=== PATIENT | male | born 1985 | race Asian ===

== ENCOUNTER → 2020-07-08 | Outpatient (REF) ==
[2020-07-08 11:52] LABS: RSV AMPLIFICATION NEGATIVE (NEGATIVE)
== END ==
LOC: M EMP 10:59
PROVIDERS: ATTEND Family Medicine
DX: Z20.828 Contact with and (suspected) exposure to other viral communicable diseases (principal)

== ENCOUNTER 2020-11-26 09:38 | Emergency (ER) | payer BC ==
[~2020-11-26] VITALS: Ht 177.8 cm; Wt 82.0 kg
[2020-11-26] MEDS ORDERED: NS 1,000 ML IV SCH (09:55)
[2020-11-26] MEDS ORDERED: FLAG500T PO (09:57)
[2020-11-26] MEDS ORDERED: CIPR-249 PO (09:57)
[2020-11-26] MEDS ORDERED: DICY20TA11 PO (09:57)
[2020-11-26] MEDS ORDERED: MULT1TAB7 PO (09:57)
[2020-11-26] MEDS ORDERED: KETOROLAC 30 MG/ML 1ML VIAL IV ONE (10:15)
[2020-11-26 10:25] LABS: BASO # 0.1 10^3/uL (0.0-0.2); BASO % 0.6 % (0.0-1.0); EOS # 0.3 10^3/uL (0.0-0.5); HEMATOCRIT 48.3 % (42.0-52.0); HEMOGLOBIN 16.5 g/dl (13.5-17.5); LYMPH # 2.1 10^3/uL (1.5-5.0); LYMPH % 26.3 % (24.0-44.0); MEAN CORPUSCULAR HEMOGLOBIN 28.8 pg (27.0-33.0); MEAN CORPUSCULAR HGB CONC 34.2 g/dl (32.0-36.5); MEAN CORPUSCULAR VOLUME 84.3 fl (80.0-96.0); MONO # 0.7 10^3/uL (0.0-0.8); MONO % 8.1 % (2.0-8.0); NEUTROPHILS # 4.9 10^3/uL (1.5-8.5); NEUTROPHILS % 60.8 % (36.0-66.0); PLATELET COUNT, AUTOMATED 288 10^3/uL (150-450); RED BLOOD COUNT 5.73 10^6/uL (4.30-6.10); WHITE BLOOD COUNT 8.1 10^3/uL (4.0-10.0)
[2020-11-26 10:49] LABS: ALBUMIN 4.2 GM/DL (3.2-5.2); BILIRUBIN,DIRECT 0.2 MG/DL (0.0-0.2); BILIRUBIN,TOTAL 0.5 MG/DL (0.2-1.0); TOTAL PROTEIN 7.9 GM/DL (6.4-8.2)
[2020-11-26] MEDS: GASTROGRAFIN SOLUTION 30ML PO SCH ×2 (11:08→11:39)
[2020-11-26] MEDS ORDERED: ISOVUE-370 76% 100ML VIAL As Ordered ONE (12:26)
--- NOTE | 2020-11-26 13:25 | REP ---
INDICATION: LLQ pain. COMPARISON: None TECHNIQUE: Standard helical technique after the intravenous administration of 100 cc Isovue 370 and oral bowel preparatory contrast administration. FINDINGS: Subsegmental atelectatic changes are seen in the lung muhammad. They are otherwise clear. The liver, gallbladder, spleen, pancreas, adrenal glands, and right kidney are within normal limits. There is minimal left-sided hydronephrosis and hydroureter with slight periureteral edema. In the distal left ureter there is a 5 mm sized ureterolith. There are no urinary bladder calcifications. There is no free fluid or free air. Bowel loops and the mesenteries are within normal limits. There is no evidence of a mass or adenopathy. The abdominal aorta is within normal limits. There are a few borderline left para-aortic lymph nodes. Bone window technique throughout the examination shows the osseous structures to be within normal limits. IMPRESSION: 1. Distal left ureterolith lith with resultant findings as described above. 2. Borderline left para-aortic lymph nodes. Follow-up is recommended. <Electronically signed by David Workman > 11/26/20 [id number]
[2020-11-26] MEDS ORDERED: TAMSULOSIN 0.4 MG CAP PO ONE (13:55)
[2020-11-26] MEDS ORDERED: FLOM0.4C39 PO (14:02)
[2020-11-26] MEDS ORDERED: HYDR-3713 PO (14:02)
[2020-11-26] MEDS ORDERED: ONDA4TAB6 PO (14:02)
[2020-11-26 14:15] VITALS: BP 131/71
== END 2020-11-26 14:25 | disposition home or self-care (01) ==
LOC: M ED 09:38
DX: N20.1 Calculus of ureter (principal); H91.22 Sudden idiopathic hearing loss, left ear; Z79.2 Long term (current) use of antibiotics; Z79.899 Other long term (current) drug therapy; Z80.0 Family history of malignant neoplasm of digestive organs
CPT/HCPCS: 74177; 80047; 80076; 83605; 83690; 85025; 93041; 96374; 99284; J1885; Q9963; Q9967

== ENCOUNTER → 2020-12-10 | Outpatient (CLI) | payer BC ==
[~2020-12-10] MED LIST: CIPR-249 PO; DICY20TA11 PO; FLAG500T PO; FLOM0.4C39 PO; HYDR-3713 PO; MULT1TAB7 PO; ONDA4TAB6 PO
--- NOTE | 2020-12-10 09:40 | REP ---
INDICATION: EVAL LIVER/BILIARY TREE/MARTHA KID/PARA AOR LYMPH NOD TECHNIQUE: Real time B-mode leone scale ultrasound examination using curved array transducer. FINDINGS: Liver demonstrates fatty infiltration without focal hepatic lesion identified. Pancreas is incompletely evaluated due to interposed bowel gas. Spleen is normal in size and appearance. Gallbladder is normal and without gallstones, wall thickening, or pericholecystic fluid. No biliary ductal dilatation is appreciated and the common bile duct measures 4 mm diameter. The bilateral kidneys are normal in reniform shape without hydronephrosis. Right kidney measures 10.9 x 5.6 x 4.5 cm. Left kidney measures 10.4 x 5.4 x 6.3 cm. The abdominal aorta appears normal and measures 2.1 cm maximal diameter. Evaluation for adenopathy is limited due to interposed bowel gas and sonographic limitations. IMPRESSION: Hepatosteatosis. <Electronically signed by Nuno Harry > 12/10/20 [id number]
== END ==
LOC: M RAD 09:02
PROVIDERS: ATTEND Internal Medicine Gastroenterology
DX: K76.0 Fatty (change of) liver, not elsewhere classified (principal)

== ENCOUNTER → 2021-03-03 | Outpatient (CLI) | payer BC | LOC: M LABSMTC 11:47 | PROVIDERS: ATTEND Anesthesiology | DX: Z11.52 Encounter for screening for COVID-19 (principal) ==

== ENCOUNTER 2021-03-07 07:06 | Day surgery (SDC) | payer BC ==
[~2021-03-07] VITALS: Ht 177.8 cm; Wt 90.2 kg
[~2021-03-07 07:06] MED LIST changes: -DICY20TA11 PO; +DICY20TA20 PO; +LIDOCAINE 2% 100MG/5ML SDV (FOR ANES.) As Ordered ONE; +NS 1,000 ML IV ONE; +propofoL 200 MG/20 ML VIAL As Ordered ONE
[2021-03-07 08:37] VITALS: BP 117/68
== END 2021-03-07 08:40 | disposition home or self-care (01) ==
LOC: M OPP 07:06
PROVIDERS: ATTEND Internal Medicine Gastroenterology
DX: D12.0 Benign neoplasm of cecum (principal); D12.3 Benign neoplasm of transverse colon; Z80.0 Family history of malignant neoplasm of digestive organs; K64.8 Other hemorrhoids; R19.4 Change in bowel habit; Z91.041 Radiographic dye allergy status

== ENCOUNTER → 2021-03-12 | Outpatient (CLI) | payer BC ==
[~2021-03-12] MED LIST changes: +DICY20TA11 PO; -DICY20TA20 PO; -LIDOCAINE 2% 100MG/5ML SDV (FOR ANES.) As Ordered ONE; -NS 1,000 ML IV ONE; +PROHANCE 279.3MG/ML 15ML VIAL As Ordered ONE; +PROHANCE 279.3MG/ML 5ML VIAL As Ordered ONE; -propofoL 200 MG/20 ML VIAL As Ordered ONE
--- NOTE | 2021-03-12 18:11 | REPVR ---
PROCEDURE INFORMATION: Exam: MR Head Without and With Contrast; Internal Auditory Canals Exam date and time: 03/12/2021 5:20 PM Age: 35 years old Clinical indication: Other: Hearing loss TECHNIQUE: Imaging protocol: MR of the head without and with intravenous contrast. Exam focused on the internal auditory canals. Contrast material: PROHANCE; Contrast volume: 17 ml; Contrast route: INTRAVENOUS (IV); COMPARISON: No relevant prior studies available. FINDINGS: Midline structures and cerebellar tonsillar position are normal. Ventricles and basilar cisterns are normal in size. No intracranial mass, acute hemorrhage or midline shift. No abnormal focal extra-axial fluid. No abnormal parenchymal or meningeal contrast enhancement. FLAIR and T2 sequences show no abnormal signal in white matter. IAC's are normal in appearance without mass or abnormal enhancement. No effacement of cerebellar pontine angle CSF signal. Optic chiasm and pituitary infundibulum appear normal. Mastoid air cells are appropriately aerated. Maxillary sinus retention cyst or polyp on the right, and mild frontal mucosal thickening. Globes and orbits are unremarkable. Vascular flow voids are maintained and the vertebral basilar and carotid systems and in the major dural venous sinuses. IMPRESSION: Unremarkable pre and post gadolinium enhanced MRI of the brain and IACs. Electronically signed by: Kyaw Esparza On 03/12/2021 18:11:20 PM
== END ==
LOC: M RAD 16:22
PROVIDERS: ATTEND Otolaryngology
DX: H90.A21 Sensorineural hearing loss, unilateral, right ear, with restricted hearing on the contralateral side (principal)
CPT/HCPCS: 70553; A9576

== ENCOUNTER → 2021-06-16 | Outpatient (CLI) | payer BC ==
[~2021-06-16] MED LIST changes: -PROHANCE 279.3MG/ML 15ML VIAL As Ordered ONE; -PROHANCE 279.3MG/ML 5ML VIAL As Ordered ONE
[2021-06-16 13:42] LABS: HEMATOCRIT 47.8 % (42.0-52.0); HEMOGLOBIN 15.8 g/dl (13.5-17.5); MEAN CORPUSCULAR HEMOGLOBIN 28.2 pg (27.0-33.0); MEAN CORPUSCULAR HGB CONC 33.1 g/dl (32.0-36.5); MEAN CORPUSCULAR VOLUME 85.4 fl (80.0-96.0); PLATELET COUNT, AUTOMATED 276 10^3/uL (150-450); WHITE BLOOD COUNT 8.6 10^3/uL (4.0-10.0)
[2021-06-16 14:07] LABS: ERYTHROCYTE SEDIMENTATION RATE 3 mm/hr (0-15)
[2021-06-16 14:16] LABS: ALBUMIN 3.9 GM/DL (3.2-5.2); ALT/SGPT 110 U/L (12-78); BILIRUBIN,TOTAL 0.3 MG/DL (0.2-1.0); BLOOD UREA NITROGEN 13 MG/DL (7-18); CALCIUM LEVEL 9.3 MG/DL (8.5-10.1); CARBON DIOXIDE LEVEL 27 MEQ/L (21-32); CHLORIDE LEVEL 109 MEQ/L (98-107); CREATININE FOR GFR 0.92 MG/DL (0.70-1.30); GLOMERULAR FILTRATION RATE > 60.0 (>60); GLUCOSE, FASTING 107 MG/DL (70-100); POTASSIUM SERUM 4.3 MEQ/L (3.5-5.1); SODIUM LEVEL 142 MEQ/L (136-145); TOTAL PROTEIN 7.6 GM/DL (6.4-8.2)
[2021-06-16 14:37] LABS: HEPATITIS B SURFACE ANTIGEN NEGATIVE (NEGATIVE)
[2021-06-16 14:38] LABS: HEMOGLOBIN A1c 5.4 %
[2021-06-16 15:03] LABS: HEPATITIS C VIRUS ABY INDEX 0.1 INDEX (<0.8)
[2021-06-16 15:04] LABS: HEPATITIS B CORE ANTIBODY IGM NEGATIVE (NEGATIVE)
[2021-06-17 05:07] LABS: HERPES ZOSTER, VARICELLA IgG 623 index (Immune >165); RUBEOLA IgG ANTIBODY >300.0 AU/mL (Immune >16.4)
== END ==
LOC: M PLALAB 09:39
PROVIDERS: ATTEND Family Medicine
DX: H90.A21 Sensorineural hearing loss, unilateral, right ear, with restricted hearing on the contralateral side (principal)

== ENCOUNTER → 2021-06-16 | Outpatient (CLI) | payer BC ==
[2021-06-16 15:09] LABS: GC DNA AMPLIFICATION NEGATIVE (NEGATIVE)
== END ==
LOC: M PLALAB 09:41
PROVIDERS: ATTEND Family Medicine
DX: Z28.3 Underimmunization status (principal)

== ENCOUNTER → 2021-11-11 | Outpatient (CLI) | payer BC ==
[~2021-11-11] MED LIST changes: -DICY20TA11 PO; +DICY20TA20 PO
== END ==
LOC: M CARPUL 13:31
PROVIDERS: ATTEND Family Medicine
DX: R06.00 Dyspnea, unspecified (principal)

== ENCOUNTER → 2022-01-22 | Outpatient (REF) | payer BC | LOC: M SFHCPLAZ 16:46 | PROVIDERS: ATTEND Family Medicine | DX: N20.0 Calculus of kidney (principal) ==

== ENCOUNTER → 2022-04-03 | Outpatient (CLI) | payer BC | LOC: M RAD 14:12 | PROVIDERS: ATTEND Internal Medicine Infectious Disease | DX: U07.1 COVID-19 (principal) ==

== ENCOUNTER 2022-08-08 16:31 | Emergency (ER) | payer BC ==
[~2022-08-08] VITALS: Ht 180.3 cm; Wt 84.5 kg
[2022-08-08] MEDS ORDERED: MORPHINE 4 MG/ML 1ML VIAL IV ONE ×3 (16:45→19:15)
[2022-08-08] MEDS ORDERED: NS 1,000 ML IV ONE (16:45)
[2022-08-08] MEDS: ONDANSETRON 4MG 2ML VIAL IV ONE ×2 (16:51→17:07)
[2022-08-08] MEDS ORDERED: MORPHINE 2 MG/ML 1ML VIAL IV ONE (17:00)
[2022-08-08 17:03] LABS: BASO # 0.1 10^3/uL (0.0-0.2); BASO % 0.7 % (0.0-1.0); EOS # 0.6 10^3/uL (0.0-0.5); EOS % 5.2 % (0.0-3.0); HEMATOCRIT 45.4 % (42.0-52.0); HEMOGLOBIN 14.9 g/dl (13.5-17.5); LYMPH # 3.1 10^3/uL (1.5-5.0); LYMPH % 29.1 % (24.0-44.0); MEAN CORPUSCULAR HEMOGLOBIN 27.9 pg (27.0-33.0); MEAN CORPUSCULAR HGB CONC 32.8 g/dl (32.0-36.5); MEAN CORPUSCULAR VOLUME 84.9 fl (80.0-96.0); MONO # 0.7 10^3/uL (0.0-0.8); MONO % 6.6 % (2.0-8.0); NEUTROPHILS # 6.2 10^3/uL (1.5-8.5); PLATELET COUNT, AUTOMATED 262 10^3/uL (150-450); RED BLOOD COUNT 5.35 10^6/uL (4.30-6.10); WHITE BLOOD COUNT 10.7 10^3/uL (4.0-10.0)
[2022-08-08 17:25] LABS: LIPASE 35 U/L (12-53)
[2022-08-08 17:27] LABS: ALKALINE PHOSPHATASE 65 U/L (46-116); ALT/SGPT 105 U/L (7.0-40); AST/SGOT 38 U/L (<34); BILIRUBIN,DIRECT 0.1 MG/DL (<0.4); BILIRUBIN,TOTAL 0.4 MG/DL (0.3-1.2); BLOOD UREA NITROGEN 16 MG/DL (9-23); CALCIUM LEVEL 8.4 MG/DL (8.5-10.1); CARBON DIOXIDE LEVEL 24 MMOL/L (20-31); CHLORIDE LEVEL 106 MMOL/L (98-107); CREATININE FOR GFR 0.86 MG/DL (0.70-1.30); GLOMERULAR FILTRATION RATE > 60.0 (>60); GLUCOSE, FASTING 135 MG/DL (60-100); POTASSIUM SERUM 3.7 MMOL/L (3.5-5.1); SODIUM LEVEL 138 MMOL/L (136-145); TOTAL PROTEIN 7.3 G/DL (5.7-8.2)
[2022-08-08] MEDS ORDERED: TAMSULOSIN 0.4 MG CAP PO ONE (18:25)
[2022-08-08] MEDS ORDERED: OXYCODONE/APAP 5MG/325MG(HOME DOSE PACK) PO ONE (19:00)
[2022-08-08] MEDS ORDERED: FLOM0.4C39 PO (19:04)
[2022-08-08] MEDS ORDERED: PERC5TAB12 PO (19:04)
[2022-08-08 20:00] VITALS: BP 139/88
== END 2022-08-08 20:16 | disposition home or self-care (01) ==
LOC: M ED 16:31
DX: N21.1 Calculus in urethra (principal); K76.0 Fatty (change of) liver, not elsewhere classified; Z87.442 Personal history of urinary calculi; Z91.041 Radiographic dye allergy status
CPT/HCPCS: 36415; 74176; 80048; 80076; 81000; 81015; 83690; 85025; 93005; 93041; 96361; 96374; 96375; 96376; 99285; J2270; J2405

== ENCOUNTER → 2025-02-15 | Outpatient (REF) | payer BC ==
[~2025-02-15] MED LIST changes: -FLOM0.4C39 PO; +ONDA-282 PO; -ONDA4TAB6 PO; +PERC5TAB12 PO; +TAMS-18 PO
[2025-02-15 17:02] LABS: PLATELET COUNT, AUTOMATED 287 10^3/uL (150-450)
[2025-02-15 17:15] LABS: ALT/SGPT 102 U/L (7.0-40); AST/SGOT 44 U/L (<34); CALCIUM LEVEL 9.1 MG/DL (8.5-10.1); CARBON DIOXIDE LEVEL 26 MMOL/L (20-31); CHLORIDE LEVEL 105 MMOL/L (98-107); CHOLESTEROL LEVEL 195 MG/DL (<200); CHOLESTEROL RISK RATIO 4.12 (<5); CREATININE FOR GFR 0.81 MG/DL (0.70-1.30); GLOMERULAR FILTRATION RATE > 90.0 (>60); LDL CHOLESTEROL 129.7 MG/DL (<100); NON-HDL-C 147.7 MG/DL; POTASSIUM SERUM 4.5 MMOL/L (3.5-5.1); PSA SCREENING 0.42 NG/ML (< 4.00); PTH INTACT 39.7 PG/ML (18.5-88.0); SODIUM LEVEL 142 MMOL/L (136-145); TRIGLYCERIDES LEVEL 90 MG/DL (<150)
[2025-02-15 17:16] LABS: TOTAL 25(OH) VITAMIN D 39.2 NG/ML (20.0-100.0)
[2025-02-15 18:13] LABS: ESTIMATED AVERAGE GLUCOSE 117.0 MG/DL (60-110)
== END ==
LOC: M SFHCPLAZ 14:28
PROVIDERS: ATTEND Family Medicine
DX: J45.40 Moderate persistent asthma, uncomplicated (principal); N20.0 Calculus of kidney; Z13.220 Encounter for screening for lipoid disorders; Z13.1 Encounter for screening for diabetes mellitus; Z80.42 Family history of malignant neoplasm of prostate
CPT/HCPCS: 80053; 80061; 82306; 83036; 83970; 85027; G0103